=== PATIENT | male | born 1985 | race African-American/Black ===

== ENCOUNTER 2019-06-05 16:38 | Emergency (ER) | payer OTHER ==
[2019-06-05 16:51] VITALS: BP 142/90; PULSE 68; TEMP 97.9; BMI 35.9
[2019-06-05] MEDS ORDERED: IBUPROFEN 400 MG TABLET (FP) PO ONE ×2 (17:09→17:11)
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
== END 2019-06-05 17:13 | disposition home or self-care (01) ==
LOC: JER 16:38
DX: S83.8X2A Sprain of other specified parts of left knee, initial encounter (principal); X50.1XXA Overexertion from prolonged static or awkward postures, initial encounter; V48.4XXA Person boarding or alighting a car injured in noncollision transport accident, initial encounter; Y92.488 Other paved roadways as the place of occurrence of the external cause; Y93.89 Activity, other specified; Y99.8 Other external cause status; Z88.0 Allergy status to penicillin
CPT/HCPCS: 99283-25

== ENCOUNTER 2019-07-24 10:38 | Emergency (ER) | payer OTHER ==
[2019-07-24 11:05] VITALS: BP 141/88; PULSE 71; TEMP 99.9; BMI 39.0
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
== END 2019-07-24 12:03 | disposition left against medical advice (07) ==
LOC: JERFT 10:38 → JER 10:38 → JERFT 12:03
DX: Z53.21 Procedure and treatment not carried out due to patient leaving prior to being seen by health care provider (principal)